=== PATIENT | female | born 1955 | race Caucasian/White ===

== ENCOUNTER 2023-11-04 16:57 | Emergency (ER) | payer MEDICARE, SELFPAY ==
[2023-11-04 17:01] VITALS: BP 147/73
[2023-11-04 17:12] VITALS: BP 147/73
[2023-11-04 17:33] LABS: % Basophils 0.7 % (0-2); % Immature Granulocytes 0.4 % (0-0.5); % Lymphocytes 26.8 % (20.5-51.1); % Monocytes 8.4 % (1.7-9.3); % Neutrophils 62.7 % (42.2-75.2); Absolute Basophils 0.1 10^3/uL (0-0.2); Absolute Eosinophils 0.1 10^3/uL (0-0.7); Absolute Lymphocytes 2.1 10^3/uL (1.2-3.4); Absolute Monocytes 0.6 10^3/uL (0.1-0.6); Absolute Neutrophils 4.8 10^3/uL (1.4-6.5); Hematocrit 37.5 % (37.0-47.0); Hemoglobin 12.5 g/dL (12.0-16.0); Mean Corp Hgb Conc. 33.3 g/dL (33.0-37.0); Mean Corpuscular Hgb 31.9 pg (27.0-31.0); Mean Corpuscular Volume 95.7 fL (81.0-99.0); Mean Platelet Volume 10.1 fL (7.4-10.4); Nucleated Red Blood Cells % 0 %; Platelet Count 260 10^3/uL (130-400); Red Blood Cell Count 3.92 10^6/uL (4.20-5.40); Red Cell Dist. Width 14.3 % (11.5-14.5); White Blood Cell Count 7.7 10^3/uL (4.8-10.8)
--- NOTE | 2023-11-04 17:35 | ED.GENMED ---
History of Present Illness
<Binta Mejía PA-C - Last Filed: 11/05/23 00:28>
General
Chief Complaint: Fainting Sensation
Source: patient
Exam Limitations: none
Time Seen by Provider: 11/04/23 17:23
Nursing documentation reviewed up to this point in time: agreed with
History of Present Illness
History of Present Illness:
Patient is a 68-year-old female with history hypertension presenting to the emergency department via EMS following presyncopal episode earlier today. Patient reports standing outside at [facility] in heat for a few hours when she started to feel
'faint'. Patient states that she was able to walk over to nearby curb where she sat down. She denies any LOC. She was given some water to drink. Patient denies any preceding chest pain, shortness of breath, dizziness, visual changes, hearing
changes, nausea/vomiting. Patient denies any numbness/tingling.
EMS was present at the scene and brought patient to the emergency department for further evaluation. Per EMS report�it appears patient was mildly hypotensive in EMS although improved and route. Patient was started on a 500 cc bolus of normal
saline.
Review of Systems
<Binta Mejía PA-C - Last Filed: 11/05/23 00:28>
Review of Systems
Allergies reviewed?: Yes
All Other Systems: ROS reviewed and negative except as documented in HPI and ROS
Phy Exam
<Binta Mejía PA-C - Last Filed: 11/05/23 00:28>
Physical Exam
Physical Exam:
Vitals: Patient's vital signs are stable. Afebrile
General: Patient is well appearing, no acute distress. Nontoxic appearing
Skin: Warm and dry, no rashes or lesions
Head: Normocephalic, atraumatic
Eyes: Sclera nonicteric. EOMs intact. No nystagmus.
Throat: Protecting airway
Neck: Normal ROM, no cervical spine tenderness, no meningismus
Cardiac: Regular rate and rhythm, no murmurs. Palpable and equal distal pulses
Pulm: Normal respiratory effort, no wheezes, rales, rhonchi heard on exam.
Abdomen: Abdomen soft. No abdominal tenderness.
Extremities: No evidence of cyanosis or edema.
Neuro: AAOx3. CN II-XII intact. No focal neurologic deficits.
Psychiatric: Normal affect.
Course
<Binta Mejía PA-C - Last Filed: 11/05/23 00:28>
Orders/Labs/Results
Orders:
Orders
11/04/23 17:16
EKG [Electrocardiogram (*1)] Urgent
Reason for Study: Vertigo / Dizzy
EKG- Treatment ONCE
11/04/23 17:20
Complete Blood Count/With Diff Urgent
11/04/23 17:47
Orthostatic VS- Treatment ONCE
Abnormal Lab Results
11/04/23
17:20
RBC 3.92 L 10^6/uL
(4.20-5.40)
MCH 31.9 H pg
(27.0-31.0)
11/04/23 17:20
11/04/23 17:45
Vital Signs
Initial and Last Documented VS:
Initial Vital Signs
Temp Pulse Resp BP Pulse Ox
98.8 F 58 18 147/73 100
11/04/23 17:01 11/04/23 17:01 11/04/23 17:01 11/04/23 17:01 11/04/23 17:01
Last Documented Vital Signs
Temp Pulse Resp BP Pulse Ox
98.8 F 56 18 147/73 99
11/04/23 17:01 11/04/23 17:12 11/04/23 17:12 11/04/23 17:12 11/04/23 17:12
<DO Estella Kong Last Filed: 11/04/23 19:02>
Orders/Labs/Results
Orders:
Orders
11/04/23 17:16
EKG [Electrocardiogram (*1)] Urgent
Reason for Study: Vertigo / Dizzy
EKG- Treatment ONCE
11/04/23 17:20
Complete Blood Count/With Diff Urgent
11/04/23 17:47
Orthostatic VS- Treatment ONCE
Abnormal Lab Results
11/04/23
17:20
RBC 3.92 L 10^6/uL
(4.20-5.40)
MCH 31.9 H pg
(27.0-31.0)
11/04/23 17:20
11/04/23 17:45
Vital Signs
Initial and Last Documented VS:
Initial Vital Signs
Temp Pulse Resp BP Pulse Ox
98.8 F 58 18 147/73 100
11/04/23 17:01 11/04/23 17:01 11/04/23 17:01 11/04/23 17:01 11/04/23 17:01
Last Documented Vital Signs
Temp Pulse Resp BP Pulse Ox
98.8 F 56 18 147/73 99
11/04/23 17:01 11/04/23 17:12 11/04/23 17:12 11/04/23 17:12 11/04/23 17:12
<Binta Mejía PA-C - Last Filed: 11/05/23 00:28>
MDM/Problems Addressed
Differential Diagnosis Includes:
Not limited to: Vasovagal near syncope, orthostatic hypotension, dehydration, cardiac arrhythmia, electrolyte abnormality, viral illness
MDM/Problems Addressed:
68-year-old female presenting following near syncopal event while standing at outdoor event earlier today. There was no loss of consciousness. Patient denies any preceding chest pain, shortness of breath, dizziness, visual changes. Patient
reports feeling lightheaded prior to sitting down. Borderline hypotension noted while en route via EMS although blood pressure normotensive by my evaluation. Patient asymptomatic now and feeling at her baseline. Physical exam as above. Patient
is well-appearing, in no apparent distress. Heart regular rate and rhythm. Lungs clear bilaterally. Patient perfusing well with palpable and equal distal pulses in upper and lower extremities. EKG obtained shows normal sinus rhythm with no acute
ischemic changes. Labs initiated. Will check orthostatic vital signs. Will give IV fluids.
Chronic conditions affecting care:
Hypertension
Acute Exacerbation and/or Progression of Chronic Illness:
Acutely hypertensive
<Binta Mejía PA-C - Last Filed: 11/05/23 00:28>
*Pulse Oximetry
Patient hypoxic: no
*EKG
Interpreted by ED Provider?: Yes
EKG Intrepretation Date: 11/04/23
Interpretation: normal
Comparison EKG: no comparison EKG present
Heart Rate: 61
Rate: normal
Rhythm: sinus
Lynn: normal axis
Interval: normal interval
QRS Pattern: normal QRS
Ischemia: no ischemia
*Call Center Team Leader Interpretation
Rate: normal
Interpretation: normal
Heart Rate: 59
Rhythm: sinus
*Critical Care Note
Total Time (30-74mins, 75-104mins- exclusive of procedures): Not Applicable
<Binta Mejía PA-C - Last Filed: 11/05/23 00:28>
Update Note
Update Note:
Update: CBC reviewed. No clinically significant abnormalities. Unfortunately chemistry did hemolyze�recommended to redraw labs to evaluate for electrolyte abnormalities although patient declined. Patient feeling completely fine and asymptomatic
and ready for discharge. Does not want to wait for lab work. Patient very mildly orthostatic on vital signs. Suspect likely mild dehydration secondary to hypovolemia. She did receive 500 cc of normal saline. Blood pressure has remained stable
throughout duration emergency department. I do feel patient is stable for discharge with primary care follow-up. Patient seen with attending physician. Return precautions discussed at length with patient and patient's has. Patient ambulating out
of emergency department without difficulty.
ED Attending Note
<Binta Mejía PA-C - Last Filed: 11/05/23 00:28>
-
Portions of this chart may have been created with voice recognition software.� Occasional wrong word or��sound alike� substitutions may have occurred due to the inherent limitations of voice recognition software.
<Kevan Yancey DO - Last Filed: 11/04/23 19:02>
ED Attending Note
Patient seen and examined by attending physician: Yes
I performed a history and physical exam of patient and discussed management with resident, I reviewed resident's note and agree with documented findings and plan of care.: Yes
ED Attending Note:
I have reviewed and agree with history and treatment plan by Binta Galaviz. My exam revealed
68-year-old female no acute distress. Suspect mild hypovolemia. She feels well now. She declines to stay to have labs completed. She is stable for discharge.
Discharge Plan
Departure
Patient Disposition: Home (Routine Discharge)
Date of Disposition: 11/04/23
Time of Disposition: 18:56
Patient with high blood pressure during this ER visit?: Yes
Condition: Good
Covid-19: Not Applicable
Discharge Problem:
Near syncope
Instructions: Near Fainting (DC), BLOOD PRESSURE
Referrals:
NONE,* [Family Provider] -
Activity Restrictions/Additional Instructions:
RETURN TO THE EMERGENCY DEPARTMENT WITH ANY CHEST PAIN, SHORTNESS OF BREATH, PERSISTENT DIZZINESS/LIGHTHEADEDNESS, HEADACHE, NUMBNESS/TINGLING, WORSENING IN CURRENT SYMPTOMS, OR ANY OTHER CONCERNS
-You should continue to take all your blood pressure medication as prescribed. It is important to stay well-hydrated. Eat a balanced diet.
-Please return with any persistently low blood pressure/high blood pressure readings or near fainting events.
-Follow-up with your primary care for further evaluation/management.
Monitor symptoms closely and return to the emergency department with any acute worsening/new symptoms
Interventions
Interventions:
*Risk Screen - Suicide Last Done: 11/04/23 17:12
*General Assessment Last Done: 11/04/23 17:12
*Neglect/Abuse Screening Last Done: 11/04/23 17:13
ED- Fall Risk Assessment Last Done: 11/04/23 17:17
*ED COVID-19 Vaccine History Last Done: 11/04/23 17:16
*Nursing Disposition Last Done: 11/04/23 19:35
ED- Cardiac Assessment Last Done: 11/04/23 17:17
ED- Neurological Assessment Last Done: 11/04/23 17:17
Discharge Date and Time
Discharge Date/Time: 11/04/23 19:35
Print Language: KOREAN
[2023-11-04 17:47] VITALS: BP 142/80; BP 143/74; BP 159/95; PULSE 61; PULSE 63; PULSE 65
== END 2023-11-04 19:35 | disposition home or self-care (01) ==
LOC: EMR 16:57
PROVIDERS: Emergency Medicine; EMERGENCY PHYSICIAN Emergency Medicine
DX: R55 Syncope and collapse (principal); I10 Essential (primary) hypertension; M19.90 Unspecified osteoarthritis, unspecified site; Z85.42 Personal history of malignant neoplasm of other parts of uterus; Z88.7 Allergy status to serum and vaccine
CPT/HCPCS: 99283; 85025; 93005